=== PATIENT | female | born 1935 | race Caucasian/White ===

== ENCOUNTER 2018-05-02 08:47 | Day surgery (SDC) | payer OTHER ==
[~2018-05-02] VITALS: Ht 152.4 cm; Wt 79.4 kg
[2018-05-02] VITALS (13 sets, daily range): BP systolic 73–141; BP diastolic 46–68; PULSE 74–91; RESP 16–24; Ht 152.4 cm; Wt 79.4 kg
[2018-05-02] MEDS ORDERED: AMLO5TAB4 PO (09:38)
[2018-05-02] MEDS ORDERED: ACET-141 PO (09:39)
[2018-05-02] MEDS ORDERED: NEBI10TA2 PO (09:40)
[2018-05-02] MEDS ORDERED: BENA40TA56 PO (09:40)
[2018-05-02] MEDS ORDERED: CITA20TA11 PO (09:40)
[2018-05-02] MEDS ORDERED: LEVO25TA50 PO (09:41)
[2018-05-02] MEDS ORDERED: METF500T24 PO (09:41)
[2018-05-02] MEDS ORDERED: CLOP75TA19 PO (09:41)
[2018-05-02] MEDS ORDERED: PANT40TA3 PO (09:42)
[2018-05-02] MEDS ORDERED: PRAV40TA76 PO (09:42)
[2018-05-02] MEDS ORDERED: CALC1TAB79 PO (09:43)
[2018-05-02] MEDS ORDERED: PRED10TA PO (09:43)
[2018-05-02] MEDS ORDERED: MULTI PO (09:43)
--- NOTE | 2018-05-02 09:57 | PREAC ---
Date/Time of Note Date/Time of Note DATE: 05/02/18 TIME: 09:54 Anesthesia Eval and Record Evaluation Time Pre-Procedure Interview DATE: 05/02/18 TIME: 09:54 Age 82 Sex female NPO: 8 hrs Preoperative diagnosis lung mass Planned procedure bronchoscopy with biopsy, lavage of left upper lobe Past Medical History Past Medical History: Includes Cardio: HTN, Dyslipidemia, Arrythmia (PVCs) Endo: Diabetes, Hypothyroid Neuro: Other (h/o TIA) Musculoskeletal: Other (polymyalgia rheumatica) Renal: CKD GI: GERD Heme: Anemia Surgery & Anesthesia Issues No known issue Meds Anticoagulation: Yes (plavix held since 04/24/18) Beta Thien within 24 hr: Yes Reason Beta Thien not given: Bradycarida, Hypotension Reported Medications Multivitamins* (Theragran*) 1 Tab Tab, 1 TAB PO DAILY, TAB 05/02/18 Calcium Carbonate/Vitamin D3 (Oysco 500+D Tablet) 1 Each Tablet, 1 EACH PO DAILY, TAB 05/02/18 Prednisone* (Prednisone*) 10 Mg Tab, 15 MG PO DAILY, TAB 05/02/18 Pravastatin Sodium* (Pravastatin Sodium*) 40 Mg Tablet, 40 MG PO HS, TAB 05/02/18 Pantoprazole* (Protonix*) 40 Mg Tablet.dr, 40 MG PO DAILY, TAB 05/02/18 Metformin Hcl* (Metformin Hcl*) 500 Mg Tablet, 750 MG PO WITH BREAKFAST, #30 TAB 05/02/18 Levothyroxine Sodium* (Levoxyl*) 25 Mcg Tablet, 25 MCG PO BEFORE BREAKFAST, #30 TAB 05/02/18 Clopidogrel Bisulfate* (Clopidogrel Bisulfate*) 75 Mg Tablet, 75 MG PO DAILY, #30 TAB 05/02/18 Citalopram Hydrobromide* (Celexa*) 20 Mg Tablet, 20 MG PO DAILY, #30 TAB 05/02/18 Nebivolol Hcl* (Bystolic*) 10 Mg Tablet, 10 MG PO DAILY, #30 TAB 05/02/18 Benazepril Hcl* (Benazepril Hcl*) 40 Mg Tablet, 40 MG PO DAILY, #30 TAB 05/02/18 Acetaminophen* (Acetaminophen*) 500 MG Extra Strength Tablet, 1000 MG PO Q6H PRN for PAIN AND OR ELEVATED TEMP, TAB 05/02/18 Amlodipine Besylate* (Norvasc*) 5 Mg Tablet, 5 MG PO DAILY, TAB 05/02/18 Meds reviewed: Yes Allergies Coded Allergies: codeine (Verified Allergy, Unknown, SEVERE STOMACH CRAMPING, 05/02/18) Allergies Reviewed: Yes Labs/Studies Labs Reviewed: Reviewed by anesthesiologist test: N/A Studies: ECG (nsr) Pre-procedure Exam Last vitals Vital Signs Date Temp Pulse Resp B/P (MAP) Pulse Ox O2 O2 Flow FiO2 Time Delivery Rate 05/02/18 97.3 91 16 141/67 96 Room Air 09:49 (91) Airway: Adequate mouth opening, Adequate thyromental dist Mallampati: Mallampati II Teeth: Normal Lung: Normal Heart: Normal ASA Physical Status ASA physical status: 3 Emergency: None Planned Anesthetic General/MAC: ETT Planned Pain Management Parenteral pain med Pre-operative Attestations Prior to commencing anesthesia and surgery, the patient was re-evaluated, there was verification of: *The patient's identity *The results of appropriate recent lab work and preoperative vital signs *The above evaluation not changing prior to induction *Anesthetic plan, risk benefits, alternative and complications discussed with patient/family; questions answered; patient/family understands, accepts and wishes to proceed. MEGAN JERNIGAN MD May 02, 2018 09:57
[2018-05-02] MEDS ORDERED: LIDOCAINE 1% (MPF) 30 ML INJ ONE (10:25)
[2018-05-02] MEDS ORDERED: PROPOFOL 20 ML ONE (10:27)
[2018-05-02] MEDS ORDERED: LIDOCAINE 2% (SDV) 5 ML INJ ONE (10:27)
[2018-05-02] MEDS ORDERED: ONDANSETRON 4 MG INJ ONE (10:40)
[2018-05-02] MEDS ORDERED: SUCCINYLCHOLINE CHLORIDE 100 MG/5 ML SYG IV ONE (10:40)
[2018-05-02] MEDS ORDERED: DEXAMETHASONE 4 MG/ML 5 ML INJ ONE (10:40)
[2018-05-02] MEDS ORDERED: LIDOCAINE 1% (MPF) 30 ML INJ INJ ONE (10:46)
[2018-05-02] MEDS ORDERED: NEOSTIGMINE 3 MG/3 ML SYRINGE ONE ×2 (10:58→11:18)
[2018-05-02] MEDS ORDERED: GLYCOPYRROLATE 1 MG INJ ONE ×2 (10:58→11:19)
[2018-05-02] MEDS ORDERED: EPHEDrine 50 MG INJ ONE (10:58)
[2018-05-02] MEDS ORDERED: ROCURONIUM 50 MG INJ ONE (10:58)
[2018-05-02] MEDS ORDERED: hydrALAzine 20 MG INJ ONE (11:16)
[2018-05-02] MEDS ORDERED: SUGAMMADEX SODIUM 200 MG/2 ML VIAL IV ONE (11:19)
[2018-05-02] MEDS ORDERED: ALBUTEROL 0.083% (NEB) 2.5 MG/3 ML AMP ONE (11:34)
--- NOTE | 2018-05-02 11:34 | PAC ---
Date/Time of Note Date/Time of Note DATE: 05/02/18 TIME: 11:33 Post-Anesthesia Notes Post-Anesthesia Note Last documented vital signs Vital Signs Date Temp Pulse Resp B/P (MAP) Pulse Ox O2 O2 Flow FiO2 Time Delivery Rate 05/02/18 97.3 91 16 141/67 96 Room Air 09:49 (91) Activity: WNL Respiratory function: WNL Cardiovascular function: WNL Mental status: Baseline Pain reasonably controlled: Yes Hydration appropriate: Yes Nausea/Vomiting absent: Yes Comments BP: 139/70 HR: 94 RR: 15 T: 98.2 SaO2: 99% MEGAN JERNIGAN MD May 02, 2018 11:34
--- NOTE | 2018-05-02 11:44 | OPR ---
Date/Time of Note Date/Time of Note DATE: 05/02/18 TIME: 11:39 Operative Report Procedure Date: May 02, 2018 Preoperative Diagnosis Lung cancer left lung Postoperative Diagnosis Left lung cancer. Operation/Procedure Performed Bronchoscopy with biopsy and lavage Surgeon see signature line Pack Train [employer] None Anesthesia Type: general Estimated Blood Loss: 0 - 10 ml's Transfusion none Specimen Pathology samples from trans-bronchial biopsies left lung. Cytology from bronchoalveolar lavage left lung. Grafts/Implants none Complications none Pt Condition Post Procedure: stable Disposition: PACU Procedure Description Patient was intubated placed on mechanical ventilation with pulse oximetry EKG and blood pressure were continuously monitored by anesthesia. Using flexible fiberoptic bronchoscope and endotracheal tube was entered main al was noted to be sharp in appearance. The right lung was first entered. There were no endobronchial lesions mucosa was normal in appearance. Left lung was then entered into the bronchial mucosa was immediately noted to be abnormal. Mucosa was friable cobblestoning in appearance. At the entrance of the left lingula ed connor was noted and bronchoscope could not be passed. Entrance to the left lower lobe was noted to be patent although somewhat edematous. Biopsies were performed of the left lingula sample sent for pathology. Bronchoalveolar lavage was performed of the left lingula. Patient had approximately 10 cc of blood loss. No bleeding on completion of procedure. I discussed findings with family after the procedure. Patient can be discharged home follow-up with me in the office. JOSE CHAPMAN MD, [facility] May 02, 2018 11:44
[2018-05-02] MEDS ORDERED: FENTAnyl 50 MCG/ML VIAL IV PRN (12:00)
[2018-05-02] MEDS ORDERED: DIPHENHYDRAMINE 50 MG INJ IV PRN (12:00)
[2018-05-02] MEDS ORDERED: IPRATROPIUM (NEB) 0.5 MG/2.5 ML AMP HHN PRN (12:00)
[2018-05-02] MEDS ORDERED: hydrALAzine 20 MG INJ IV PRN (12:00)
[2018-05-02] MEDS ORDERED: LABETALOL HCL 20MG INJ IV PRN (12:00)
[2018-05-02] MEDS ORDERED: MEPERIDINE 25 MG INJ IV PRN (12:00)
[2018-05-02] MEDS ORDERED: HYDROmorphONE 1 MG/5 ML IV SYRINGE IV PRN (12:00)
[2018-05-02] MEDS ORDERED: ONDANSETRON 4 MG INJ IV PRN (12:00)
[2018-05-02] MEDS ORDERED: ALBUTEROL 0.083% (NEB) 2.5 MG/3 ML AMP HHN PRN (12:00)
== END 2018-05-02 13:32 | disposition home or self-care (01) ==
LOC: SDS 08:47
PROVIDERS: ATTEND Internal Medicine Pulmonary Disease
DX: C34.92 Malignant neoplasm of unspecified part of left bronchus or lung (principal)
CPT/HCPCS: 31622; 82962; 88104; 88305; 88313; 94664; J0360; J1100; J2405; J2710; 88341; 88342; 88360; 88377